=== PATIENT | male | born 1965 | race Caucasian/White ===

== ENCOUNTER 2019-05-27 05:36 | Day surgery (SDC) | payer OTHER ==
[~2019-05-27] VITALS: Ht 175.3 cm; Wt 149.7 kg
--- NOTE | ~2019-05-27 | O ---
[facility] [place] [address] OPERATIVE REPORT Name: DAYRON EVANS Room #: DEP [facility].#: [id number] Admission: 05/27/19 ������������������ Attend Phys: Damien Rock MD Discharge: 05/27/19 ������������������ Date of : 65 Report #: [id number] THIS REPORT FOR: //name// CC: Randell Rock DATE OF SERVICE: 05/27/2019 PREOPERATIVE DIAGNOSIS: Large umbilical hernia. POSTOPERATIVE DIAGNOSIS: Large umbilical hernia. OPERATIVE PROCEDURE DONE: ____. INDICATIONS: The patient is a 54-year-old male who presented with features of a large umbilical hernia. The patient has class 3 obesity with severe type 2 diabetes. I did advise losing weight further prior to repair of the hernia because of the increased risk of recurrence; however, the patient wishes to proceed with hernia repair. DESCRIPTION OF PROCEDURE: After explaining to the patient in detail and informed consent was obtained, the patient was identified in the preoperative holding area. The patient was transferred to the operating room and was placed in supine position. Sequential compressive devices were placed for DVT prophylaxis. Preoperative antibiotics were given. After induction of anesthesia, the abdomen was prepped and draped in a sterile fashion. Through a left upper quadrant 1 cm incision and using Optiview technique, peritoneal cavity was entered and pneumoperitoneum was created. Thereafter, under direct vision, another 8 mm trocar was placed in the left flank and another 5 mm trocar was placed in the left lower quadrant region. On initial inspection, the patient was noted to have a large umbilical hernia, which measured approximately about 5 cm. The omentum was seen going into the hernial cavity. I transected part of the omentum and on further inspection of the sac, there was still a large piece of omentum still stuck within the sac which was gently dissected off. Part of the sac was also dissected off. Once this was completed, I then placed three interrupted #1 Ethibond suture approximating the fascia and the hernial defect. I then chose a 10 x 15 cm Parietex mesh, which was hydrated. I placed a [place]-Dick suture at the middle of the adherent surface of the mesh and was introduced into the abdominal cavity and this was then anchored onto the anterior abdominal wall. The mesh was then tacked circumferentially using SecureStrap at 1 cm intervals. I then placed the omentum within the EndoCatch; however, this was too large to be retrieved and I had difficulty retrieving it; therefore, I had to extend the lateral most incision by another couple more centimeters to facilitate removal of this piece of omentum with the bag. This wound was then closed in layers using #1 Vicryl for the fascia. Skin was closed [address] [address] OPERATIVE REPORT Name: DAYRON JOSE Room #: DEP [facility] M.R.#: [id number] Admission: 05/27/19 ������������������ Attend Phys: Damien Rock MD Discharge: 05/27/19 ������������������ Date of : 65 Report #: [id number] with 4-0 Monocryl for all the incisions. Dermabond was applied. Approximately about 10 mL of lidocaine and Marcaine mix was injected into all the incisions. Absolute hemostasis was ensured. The patient was awoken up from anesthesia and was transferred to the recovery room in stable condition. ESTIMATED BLOOD LOSS: Minimal. CONDITION OF THE PATIENT: Stable. FLUIDS GIVEN: Per anesthesia notes. SPECIMEN SENT: Excised omentum. COMPLICATIONS: None. ANESTHESIA: General anesthesia. ��������������������������������������������� ���������������������������������������� By: ��������������������������������������������� 0745 0918 Damien Rock MD /nt
[~2019-05-27 05:36] MED LIST: AMLODIPINE BESY10 MG PO; CYMBALTA60 MG PO; FARXIGA10 MG PO; FENOFIBRATE48 MG PO; LASIX 20 MG TAB20 MG PO; LISINOPRIL-HCT1 EAC2 PO; LOVASTATIN40 MG PO; METFORMIN HCL1000 MG PO; NEURONTIN 300300 M1 PO; OMEPRAZOLE 20 M20 M1 PO; RELION NOV100 UNIT/2 SUBQ
[2019-05-27 06:57] LABS: CALCIUM 9.3 mg/dL (8.5-10.1); POTASSIUM 3.9 mmol/L (3.5-5.1)
[2019-05-27 07:33] VITALS: BP 140/82
--- NOTE | 2019-05-27 08:23 | EKG ---
[address] [place] [address] ELECTROCARDIOGRAM REPORT Name: DAYRON EVANS Room #: [address] [place] [address].#: [id number] ������������������ Admission: 05/27/19 ������������������ Attend Phys: Damien Rock MD Discharge: ������������������ Date of : 65 Report #: [id number] ����������������������������������������������������������������� [id number] THIS REPORT FOR: //name// [facility] Test Date: 2019-05-27 Test Time: 06:38:41 Pat Name: DAYRON EVANS Department: Room: 150 1 Gender: M [employer]: jackie : 1965 Requested By: Arvind Méndez Order Number: [id number] MD: Zhou Bergeron Measurements Intervals [place] Rate: 80 P: 44 [place]: 150 QRS: -22 QRSD: 101 T: 16 QT: 382 QTc: 441 Interpretive Statements Sinus rhythm Borderline left axis deviation Baseline wander in lead(s) II,III,aVR,aVF,V1,V6 No previous ECG available for comparison Electronically Signed On 05-27-2019 8:22:58 CDT by Zhou Bergeron [email or web address] ��������������������������������������������� <ELECTRONICALLY SIGNED> ���������������������������������������� By: Zhou Bergeron MD ��������������������������������������������� 05/27/19 0822 7 7 Zhou Bergeron MD /MIGUEL
[2019-05-27 09:53] VITALS: BP 140/82
--- NOTE | 2019-05-29 14:05 | PATH ---
[facility] [address] [place] [address] PATHOLOGY RPT PROCEDURE Name: GOODMANDAYRON GARCIA Room #: DEP [facility] [place] M.R.#: [id number] ������������������ Admission: 05/27/19 ������������������ Date of : 65 Discharge: 05/27/19 Report #: [id number] Path Case #: [id number] [facility] Accession Number: [id number] . 01 Material submitted: . umbilicus - UMBILICAL HERNIA . 01 Clinical history: . Umbilical hernia . 02 Diagnosis: Umbilical hernia: - Benign, mesothelial-lined fibrofatty tissue. . (HERB:mmharmony; 05/29/2019) [facility]/05/29/2019 . 02 Electronically signed: . Willard Mccullough MD, Pathologist NPI- [id number] . 01 Gross description: . The specimen is received in formalin, labeled "Dayron Minaya, umbilical hernia". Received is a segment of fibroadipose tissue with attached omentum measuring 29.8 x 12.5 x 5.7 cm in greatest dimensions. No distinct nodules or lesions are noted grossly. The specimen is submitted representatively in cassette A1. (CAA; 05/28/2019) QAC/QAC . 02 Pathologist provided ICD-10: K42.9 . 02 CPT . 279507 Specimen Comment: A courtesy copy of this report has been sent to Specimen Comment: [phone], . Specimen Comment: Report sent to / DR OVALLE Performed at: [address], [place], [place] [id number] MD Jim Cm MD Phone: [phone] Performed at: 02 [facility] [address], [place], [place] [id number] MD Willard Mccullough MD Phone: [phone]
== END 2019-05-27 10:35 | disposition home or self-care (01) ==
LOC: OR 05:36 → TBA 05:38 → OR 10:35
PROVIDERS: Anesthesiology
DX: K42.9 Umbilical hernia without obstruction or gangrene (principal); I10 Essential (primary) hypertension; E78.00 Pure hypercholesterolemia, unspecified; E11.9 Type 2 diabetes mellitus without complications; K21.9 Gastro-esophageal reflux disease without esophagitis; G62.9 Polyneuropathy, unspecified; F32.9 Major depressive disorder, single episode, unspecified; F17.210 Nicotine dependence, cigarettes, uncomplicated; Z79.4 Long term (current) use of insulin; Z68.42 Body mass index [BMI] 45.0-49.9, adult; Z98.890 Other specified postprocedural states; Z79.899 Other long term (current) drug therapy; E66.09 Other obesity due to excess calories
CPT/HCPCS: 50010; 50101; 50249; 50411; 50555; 50558; 50984; 51975; 52265; 52266; 53310; 54022; 54118; 56462; 56525; 56526; 56527; 56530; 57257; 57261; 62110; 62900; 65131; 70005